=== PATIENT | male | born 1970 | race Two or more races ===

== ENCOUNTER 2022-10-27 08:47 | Emergency (ER) | payer BC ==
[~2022-10-27] VITALS: Ht 190.5 cm; Wt 127.0 kg
[2022-10-27] MEDS ORDERED: MEDROLPACK PO (10:10)
[2022-10-27] MEDS ORDERED: NAPROXEN500 MG PO (10:10)
== END 2022-10-27 10:56 | disposition home or self-care (01) ==
LOC: ER 08:47
DX: K04.7 Periapical abscess without sinus (principal)